=== PATIENT | female | born 1990 | race Caucasian/White ===

== ENCOUNTER 2016-06-23 15:57 | Emergency (ER) | payer BC, OTHER ==
[~2016-06-23] VITALS: Wt 71.0 kg
[2016-06-23] MEDS ORDERED: ONDANSETRON 4 MG INJ IV STA (16:25)
[2016-06-23] MEDS ORDERED: SOD CHLORIDE 0.9% 500 ML IV STA (16:25)
[2016-06-23 16:35] LABS: URINE BLOOD (Dip) POC Negative (NEGATIVE)
[2016-06-23 17:16] LABS: ADD SCAN DIFF NO
[2016-06-23 17:20] LABS: BASOPHILS % 0.2 % (0.0-2.0); EOSINOPHILS # 0.1 10^3/ul (0.0-0.5); EOSINOPHILS % 0.3 % (0.0-7.0); HEMATOCRIT 40.5 % (37.0-47.0); HEMOGLOBIN 13.3 g/dl (12.0-16.0); LYMPHOCYTES # 0.8 10^3/ul (0.8-2.9); LYMPHOCYTES % 4.8 % (15.0-51.0); MEAN CORPUSCULAR HEMOGLOBIN 29.9 pg (29.0-33.0); MEAN CORPUSCULAR HGB CONC 32.8 g/dl (32.0-37.0); MEAN PLATELET VOLUME 10.7 fl (7.4-10.4); MONOCYTE # 0.9 10^3/ul (0.3-0.9); NEUTROPHIL # 15.5 10^3/ul (1.6-7.5); NEUTROPHILS % 89.5 % (39.0-77.0); PLATELET COUNT 266 10^3/UL (140-415); RED BLOOD COUNT 4.45 10^6/ul (4.20-5.40); RED CELL DISTRIBUTION WIDTH 12.8 % (11.5-14.5); WHITE BLOOD COUNT 17.3 10^3/ul (4.8-10.8)
[2016-06-23 17:36] LABS: ALBUMIN 4.4 g/dl (3.3-4.9); POTASSIUM 3.5 mmol/L (3.5-5.1)
[2016-06-23 17:38] LABS: CREATININE 0.7 mg/dl (0.44-1.00)
[2016-06-23 17:39] LABS: ALBUMIN/GLOBULIN RATIO 1.33; BILIRUBIN,INDIRECT 0.7 mg/dl (0-1.1); BILIRUBIN,TOTAL 0.7 mg/dl (0.2-1.3); CALCIUM 9.3 mg/dl (8.4-10.2); TOTAL PROTEIN 7.7 g/dl (6.1-8.1)
[2016-06-23] MEDS ORDERED: KETOROLAC 30 MG INJ IV STA (17:43)
--- NOTE | 2016-06-23 17:49 | RADRPT ---
PROCEDURE: US Abdomen (right upper quadrant). CLINICAL INDICATION: Pain TECHNIQUE: Multiple real-time longitudinal and transverse images of the right upper quadrant of th e abdomen were acquired utilizing a curved array transducer. Images were reviewed on a high-resoluti on PACS workstation. COMPARISON: None FINDINGS: Liver: Normal size and echogenicity. No focal mass. Normal hepatopedal flow in the main portal vei n. Gallbladder: Normal. Biliary tree: No intra or extrahepatic dilatation. Common duct diameter is 2.5 mm. Pancreas: Normal. Right kidney: Length measures 11.6 cm. No renal mass, calculus, hydronephrosis or perinephric flui d. Abdominal aorta and IVC: Normal. Additional findings: No free fluid. IMPRESSION: 1. Unremarkable right upper quadrant ultrasound. RPTAT: QQ .Gerry Cody MD, Date Time Electronically viewed and signed by .Gerry Cody MD, MD on 06/23/2016 17:49 .R/
--- NOTE | 2016-06-23 17:50 | RADRPT ---
PROCEDURE: US Pelvis CLINICAL INDICATION: Pelvic pain, menorrhagia TECHNIQUE: Sonographic evaluation of the pelvis was performed utilizing both transabdominal and tr ansvaginal technique. Curved array transabdominal transducer technique as well as a high frequency endovaginal probe was utilized. Images were reviewed on the high-resolution PACS workstation. COMPARISON: None available FINDINGS: The uterus is normal in size, echogenicity, and morphology measuring 9.2 x 4.4 x 7.4 cm in dimension . The uterus is anteverted in normal position. The endometrium measures 7.5 mm in diameter. The normal trilaminar stripe of the endometrium is preserved. The ovaries are not visualized. No adnexal mass or pelvic free fluid is identified. IMPRESSION: 1. Unremarkable appearance of the uterus. 2. Ovaries are not visualized. No adnexal mass or pelvic free fluid is seen. RPTAT: QQ .Gerry Cody MD, MD Date Time Electronically viewed and signed by .Gerry Cody MD, on 06/23/2016 17:50 .R/
--- NOTE | 2016-06-23 17:51 | ERD ---
ER Documentation Chief Complaint Date/Time DATE: 06/23/16 TIME: 17:44 Chief Complaint ABD PAIN X 2 WEEKS (KEHINDE BENNETT NP) HPI This is a 25 year old female who presents to ED for intermittent epigastric and RUQ abdominal pain x 2 weeks. Patient describes pain as sharp and rating pain 7 /10 to right upper quadrant. Pain radiates to right upper chest. No shortness breath or difficulty breathing. Patient states she has nausea however no vomiting. No diarrhea or constipation. Last bowel movement was this morning. No dysuria or hematuria. Patient was seen a week ago by primary care provider however was not given a definitive diagnosis. Patient also states she has had a prolonged menstrual period. LMP 05/23/2016. Patient states she had a normal menstrual period for 3-4 days. Then about 1 week later she developed vaginal bleeding again. Patient recently discontinued Accutane at the beginning of May. (KEHINDE BENNETT NP) ROS All systems reviewed and are negative except as per history of present illness. (KEHINDE BENNETT NP) Medications Home Meds Active Scripts Docusate Sodium* (Colace*) 100 Mg Capsule, 100 MG PO BID, #20 CAP Prov:ALBER HEADLEY MD 06/23/16 Hydrocodone/Acetaminophen ([place] 5-325 Tablet) 1 Each Tablet, 1 TAB PO Q6H Y for PAIN, #14 TAB Prov:ALBER HAEDLEY MD 06/23/16 Allergies Allergies: Coded Allergies: No Known Allergy (Unverified , 06/23/16) PMhx/Soc Medical and Surgical Hx: pt denies Surgical Hx Hx Alcohol Use: Yes (SOCIALLY) Hx Substance Use: No Hx Tobacco Use: No (KEHINDE BENNETT NP) Physical Exam Vitals Vital Signs Date Time Temp Pulse Resp B/P Pulse Ox O2 Delivery O2 Flow Rate FiO2 06/23/16 16:06 98.0 121 18 120/71 99 (ALBER HEADLEY MD) Physical Exam Const: NAD, alert Head: Atraumatic Eyes: Normal Conjunctiva ENT: Normal External Ears, Nose and Mouth. Neck: Full range of motion..~ No meningismus. Resp: Clear to auscultation bilaterally Cardio: Regular rate and rhythm, no murmurs Abd: Soft, non distended. Normal bowel sounds, right upper quadrant tenderness to palpation. Skin: No petechiae or rashes Back: No midline or flank tenderness Ext: No cyanosis, or edema Neur: Awake and alert Psych: Normal Mood and Affect (SABRINA,KEHINDE Early NP) Result Diagram: 06/23/16 1629 06/23/16 1629 Results 24 hrs Laboratory Tests Test 06/23/16 16:29 06/23/16 16:34 White Blood Count 17.310^3/ul Red Blood Count 4.4510^6/ul Hemoglobin 13.3g/dl Hematocrit 40.5% Mean Corpuscular Volume 91.0fl Mean Corpuscular Hemoglobin 29.9pg Mean Corpuscular Hemoglobin Concent 32.8g/dl Red Cell Distribution Width 12.8% Platelet Count 94630^3/UL Mean Platelet Volume 10.7fl Neutrophils % 89.5% Lymphocytes % 4.8% Monocytes % 5.0% Eosinophils % 0.3% Basophils % 0.2% Nucleated Red Blood Cells % 0.0/100WBC Neutrophils # 15.510^3/ul Lymphocytes # 0.810^3/ul Monocytes # 0.910^3/ul Eosinophils # 0.110^3/ul Basophils # 0.010^3/ul Nucleated Red Blood Cells # 0.010^3/ul Sodium Level 139mmol/L Potassium Level 3.5mmol/L Chloride Level 101mmol/L Carbon Dioxide Level 26mmol/L Anion Gap 16 Blood Urea Nitrogen 12mg/dl Creatinine 0.70mg/dl Glucose Level 105mg/dl Calcium Level 9.3mg/dl Total Bilirubin 0.7mg/dl Direct Bilirubin 0.00mg/dl Indirect Bilirubin 0.7mg/dl Aspartate Amino Transf (AST/SGOT) 27IU/L Alanine Aminotransferase (ALT/SGPT) 18IU/L Alkaline Phosphatase 59IU/L Total Protein 7.7g/dl Albumin 4.4g/dl Globulin 3.30g/dl Albumin/Globulin Ratio 1.33 Lipase 60U/L Bedside Urine pH (LAB) 7.5 Bedside Urine Protein (LAB) Negative Bedside Urine Glucose (UA) Negative Bedside Urine Ketones (LAB) Negative Bedside Urine Blood Negative Bedside Urine Nitrite (LAB) Negative Bedside Urine Leukocyte Esterase (L Negative Current Medications Medications (Trade) Dose Ordered Sig/Abelardo Route PRN Reason Start Time Stop Time Status Last Admin Dose Admin Sodium Chloride (NS) 500 ml @ 500 mls/hr Q1H STAT IV 06/23/16 16:25 06/23/16 17:24 DC 06/23/16 16:39 Ondansetron HCl (Zofran Inj) 4 mg ONCE STAT IV 06/23/16 16:25 06/23/16 16:29 DC 06/23/16 16:38 Ketorolac Tromethamine (Toradol) 30 mg ONCE STAT IV 06/23/16 17:43 06/23/16 17:44 DC 06/23/16 17:59 Famotidine (Pepcid Iv) 20 mg ONCE ONCE IV 06/23/16 18:00 06/23/16 18:01 DC 06/23/16 17:59 Morphine Sulfate (morphine) 2 mg ONCE ONCE IV 06/23/16 18:30 06/23/16 18:31 DC 06/23/16 18:22 (ALBER HEADLEY MD) Procedures/MDM ED COURSE: The patient was stable throughout ED course. I kept the patient and/or family informed of laboratory and diagnostic imaging results throughout the ED course. IV access obtained. Zofran and Toradol given Laboratory CBC white blood cells 17.3 otherwise unremarkable CMP no significant electrolyte imbalance. AST and ALT are normal Lipase 60 Urine dip negative Urine negative Imaging Right upper quadrant ultrasound Patient: GEETA DUMONT : 1990 Age: 25 Sex: F MR #: [id number] DOS: 06/23/16 1625 Ordering MD: KEHINDE BENNETT NP Location: [facility] Room/Bed: PROCEDURE: US Abdomen (right upper quadrant). CLINICAL INDICATION: Pain TECHNIQUE: Multiple real-time longitudinal and transverse images of the right upper quadrant of the abdomen were acquired utilizing a curved array transducer. Images were reviewed on a high-resolution PACS workstation. COMPARISON: None FINDINGS: Liver: Normal size and echogenicity. No focal mass. Normal hepatopedal flow in the main portal vein. Gallbladder: Normal. Biliary tree: No intra or extrahepatic dilatation. Common duct diameter is 2.5 mm. Pancreas: Normal. Right kidney: Length measures 11.6 cm. No renal mass, calculus, hydronephrosis or perinephric fluid. Abdominal aorta and IVC: Normal. Additional findings: No free fluid. IMPRESSION: 1. Unremarkable right upper quadrant ultrasound. Pelvic ultrasound Patient: GEETA DUMONT : 1990 Age: 25 Sex: F MR #: [id number] [facility] #: [id number] DOS: 06/23/16 1625 Ordering MD: KEHINDE BENNETT NP [facility] Room/Bed: PROCEDURE: US Pelvis CLINICAL INDICATION: Pelvic pain, menorrhagia TECHNIQUE: Sonographic evaluation of the pelvis was performed utilizing both transabdominal and transvaginal technique. Curved array transabdominal transducer technique as well as a high frequency endovaginal probe was utilized. Images were reviewed on the high-resolution PACS workstation. COMPARISON: None available FINDINGS: The uterus is normal in size, echogenicity, and morphology measuring 9.2 x 4.4 x 7.4 cm in dimension. The uterus is anteverted in normal position. The endometrium measures 7.5 mm in diameter. The normal trilaminar stripe of the endometrium is preserved. The ovaries are not visualized. No adnexal mass or pelvic free fluid is identified. IMPRESSION: 1. Unremarkable appearance of the uterus. 2. Ovaries are not visualized. No adnexal mass or pelvic free fluid is seen. MDM: 25-year-old female presents to the emergency department for right upper quadrant abdominal pain and nausea 2 weeks. Patient states she is nauseous however no vomiting. IV access obtained per staff consultant and patient given Zofran and Toradol. Patient also given 500 mL normal saline fluid bolus. WBC 17.3 otherwise labs unremarkable. Normal lipase. Right upper quadrant ultrasound reviewed by radiologist as unremarkable Pelvic ultrasound reviewed by radiologist as unremarkable. No adnexal mass or pelvic free fluid is seen Urine is negative for infection. Urine negative. Patient was signed out to Dr. Headley (KEHINDE BENNETT NP) This patient was signed out by KEHINDE CARBONE for abdominal pain of uncertain etiology in the right upper quadrant. EKG: Rate/Rhythm: [Normal Sinus Rhythm] rate equals 103 QRS, ST, T-waves: [No changes consistent w/ acute ischemia] Impression: [No evidence of ischemia or arrhythmia]. Impression-slight sinus tachycardia, otherwise no acute findings on EKG. CT abdomen pelvis read as normal by the radiologist. Serial abdominal exam shows the patient has mild central tenderness without rebound, Jean Baptiste sign, tenderness at McBurney's point. Patient presents with abdominal pain of uncertain etiology with multiple normal studies except for slight leukocytosis. She was discharged home with a short course of [place] and Colace and instructed to recheck the next day for vomiting, worsening pain, blood, fevers, new worsening symptoms with primary care doctor this week. The patient was stable with no new complaints during the ER course. Clinically, there is no current evidence to suggest meningitis, sepsis, acute abdomen, pneumonia, acute coronary syndrome, pulmonary embolism, or any other emergent condition appearing to require further evaluation or hospitalization. The patient should certainly return for any new or worsening symptoms per the aftercare instructions. They should otherwise follow-up with her primary care doctor for reevaluation this week. (ALBER HEADLEY MD) Departure Diagnosis: Primary Impression: Abdominal pain Abdominal location: generalized Qualified Code: R10.84 - Generalized abdominal pain Condition: Stable KEHINDE BENNETT NP Jun 23, 2016 17:51 ALBER HEADLEY MD Jun 23, 2016 19:56
[2016-06-23] MEDS ORDERED: FAMOTIDINE 20 MG INJ IV ONE (18:00)
[2016-06-23] MEDS ORDERED: morphine 2 MG INJ IV ONE (18:30)
--- NOTE | 2016-06-23 19:25 | RADRPT ---
PROCEDURE: CT Abdomen and Pelvis without contrast. CLINICAL INDICATION: Right upper quadrant pain TECHNIQUE: CT of the abdomen and pelvis was performed on a multi-detector scanner without IV contr ast. Coronal and sagittal images were reformatted from the axial data set. One or more of the foll owing dose reduction techniques were used: automated exposure control, adjustment of the mA and/or kV according to patient size, use of iterative reconstruction technique. CTDI = 10.37 mGy. DLP = 59 4.33 mGy-cm. COMPARISON: Ultrasound, 06/23/2016 FINDINGS: CT abdomen: The lung bases are clear. The heart size is normal, without pericardial effusion. Liver, gallbladd er, biliary tree, pancreas, spleen, adrenal glands and kidneys are unremarkable. No urolithiasis or obstructive uropathy is identified. The stomach is grossly unremarkable. The aorta is of normal caliber. There is no retroperitoneal lymphadenopathy. The bob hepatis reg ion is clear. CT pelvis: No bowel obstruction, free intraperitoneal air or abscess is identified. There is no diverticulosis , diverticulitis or colitis. The appendix is well visualized and normal. Urinary bladder, uterus a nd adnexa are grossly unremarkable. No pelvic mass, free fluid or lymphadenopathy is identified. The surrounding osseous structures are unremarkable. No osteolytic or osteoblastic lesion is detect ed. IMPRESSION: 1. Unremarkable CT scan of the abdomen and pelvis. 2. No mass, lymphadenopathy, or focal acute inflammatory process is identified. RPTAT: QQ .Gerry Cody MD, MD Date Time Electronically viewed and signed by .Gerry Cody MD, on 06/23/2016 19:24 .R/
[2016-06-23] MEDS ORDERED: HYDR-906 PO (19:54)
[2016-06-23] MEDS ORDERED: DOCU-144 PO (19:54)
[2016-06-23 20:18] VITALS: BP 121/83; PULSE 78; RESP 18; TEMP 98.2
== END 2016-06-23 20:19 | disposition home or self-care (01) ==
LOC: FTE 15:57
DX: R10.84 Generalized abdominal pain (principal); R10.2 Pelvic and perineal pain
CPT/HCPCS: 74176; 76705; 76830; 76856; 80053; 81003; 83690; 85025; 93005; 96374; 96375; 99285; J1885; J2270; J2405; J7040